=== PATIENT | male | born 1995 | race Caucasian/White ===

== ENCOUNTER 2016-08-23 17:54 | Emergency (ER) | payer MEDICAID ==
--- NOTE | 2016-08-23 20:10 | EDPHY ---
H & P Time Seen by Provider: 08/23/16 18:05 HPI/ROS: CHIEF COMPLAINT: right ankle pain, right foot pain HISTORY OF PRESENT ILLNESS: 21-year-old male presents emergency department complaining of right ankle and foot pain. Patient reports he was dancing in the history and landed on his foot wrong. He denies previous injury to this ankle. He has been unable to bear weight due to pain. He denies other complaints, no numbness or tingling to this foot. Smoking Status: Heavy smoker Physical Exam: General appearance: alert no distress Right ankle: There is swelling and tenderness over the medial and lateral ankle. TTP to ATFL and CFL, tenderness to deltoid ligament, there is no tenderness over the achilles tendon. The foot has TTP over 5th metatarsal. Neurologic exam: The patient has normal sensation and motor function distal to the injury. Vascular exam: Normal pulses and capillary refill in the foot Constitutional: Initial Vital Signs Temperature (C) 36.6 C 08/23/16 17:55 Heart Rate 84 08/23/16 17:55 Respiratory Rate 16 08/23/16 17:55 Blood Pressure 136/84 H 08/23/16 17:55 O2 Sat (%) 96 08/23/16 17:55 O2 Delivery Mode Room Air Allergies/Adverse Reactions: No Known Allergies Allergy (Verified 08/23/16 17:59) Home Medications: Medication Instructions Recorded Hydrocodone/APAP 5/325 [[place] 1 tab PO Q4H PRN #7 tab 08/23/16 5/325] MDM/Departure - MDM Diagnostics: Right ankle x-ray independently reviewed by me- Findings: There is soft tissue swelling, more pronounced laterally. There is also convex-edged bowing with fluid distending the anterior tibial talar fat pad, consistent with an ankle joint effusion. There is is a transversely-oriented fracture involving the base of the fifth metatarsal ( Gonzalez fracture). The ankle mortise is maintained. The talar dome is well- contoured. The subtalar joint is normal. Impression: 1. Lateral ankle sprain. 2. Transversely-oriented fracture at the base of the fifth metatarsal. Dictated By: Israel House MD - Depart Disposition: Home, Routine, Self-Care Clinical Impression: Right ankle sprain Qualifiers: Encounter type: initial encounter Involved ligament of ankle: unspecified ligament Qualified Code(s): S93.401A - Sprain of unspecified ligament of right ankle, initial encounter Fracture of base of fifth metatarsal bone Qualifiers: Encounter type: initial encounter Fracture type: closed Laterality: right Qualified Code(s): S92.351A - Displaced fracture of fifth metatarsal bone, right foot, initial encounter for closed fracture Condition: Good Instructions: Foot Fracture in Adults (ED), Ankle Sprain (ED) Additional Instructions: Rest, ice, elevate, take 600mg of ibuprofen every 8 hours with food for 3-5 days as needed for pain and swelling. Wear the boot, use crutches for ambulation , follow up with [facility] or the orthopedist at 1st available appointment. Call the case coordinator in the morning [phone] if you need help arranging these appointments. Return to the emergency department for any numbness, tingling, discoloration of you limb or other concerns. Prescriptions: Hydrocodone/APAP 5/325 [[place] 5/325] 1 tab PO Q4H PRN #7 tab PRN Reason: Pain, Moderate Referrals: Pierce Camacho MD [Medical Doctor] - As per Instructions (Orthopedist on-call) [facility],. [Clinic] - As per Instructions
[2016-08-23] MEDS ORDERED: HYDROCOD/APAP 5/325 PREPACK#6 BTL TAKEHOME ONE ×2 (20:26→20:32)
[2016-08-23] MEDS ORDERED: IBUPROFEN 600 MG TAB PO ONE ×2 (20:26→20:29)
[2016-08-23 20:42] VITALS: BP 150/80; PULSE 94; RESP 18; TEMP 97; O2SAT 98
== END 2016-08-23 20:52 | disposition home or self-care (01) ==
LOC: EDUNIT#
DX: S92.351A Displaced fracture of fifth metatarsal bone, right foot, initial encounter for closed fracture (principal); S93.401A Sprain of unspecified ligament of right ankle, initial encounter; F17.200 Nicotine dependence, unspecified, uncomplicated; X58.XXXA Exposure to other specified factors, initial encounter; Y93.41 Activity, dancing
CPT/HCPCS: L4386